=== PATIENT | male | born 1990 | race African-American/Black ===

== ENCOUNTER 2018-09-09 12:41 | Emergency (ER) | payer OTHER ==
[~2018-09-09] VITALS: Ht 180.3 cm; Wt 109.4 kg
[2018-09-09] MEDS ORDERED: TETRACAINE 0.5% OPHTH SOLN 4ML OD ONE (13:45)
[2018-09-09] MEDS ORDERED: FLUORESCEIN OPHTH 1 MG STRIP OD ONE (13:45)
[2018-09-09] MEDS ORDERED: ERYTOIN8 OD (14:15)
[2018-09-09 14:28] VITALS: BP 121/59
== END 2018-09-09 14:29 | disposition home or self-care (01) ==
LOC: M ED 12:41
DX: H00.011 Hordeolum externum right upper eyelid (principal); S05.01XA Injury of conjunctiva and corneal abrasion without foreign body, right eye, initial encounter; X58.XXXA Exposure to other specified factors, initial encounter; Y92.89 Other specified places as the place of occurrence of the external cause; F17.210 Nicotine dependence, cigarettes, uncomplicated